=== PATIENT | male | born 1955 | race American Indian/Alaskan Native ===

== ENCOUNTER 2016-10-29 05:59 | Day surgery (SDC) | payer OTHER ==
[~2016-10-29 05:59] MED LIST: MARCAINE 0.25% INFILTRATI ONE; WATER FOR IRRIG STERILE IR ONE; XYLOCAINE 1%/ EPI 1:100,000 INFILTRATI ONE
[2016-10-29] MEDS ORDERED: PEPCID PO NR (06:00)
[2016-10-29] MEDS ORDERED: CLEOCIN 600 MG/50 mL 600 MG/50 ML BAG IV NR (06:00)
[2016-10-29] MEDS ORDERED: NACL 0.9% 1000 ML 1,000 ML IV SCH (06:00)
[2016-10-29] MEDS ORDERED: VERSED IV NR (06:00)
[2016-10-29] MEDS ORDERED: NACL BACTERIOSTATIC INFILTRATI ONE (06:41)
[2016-10-29] MEDS ORDERED: XYLOCAINE 1%/ EPI 1:100,000 INFILTRATI ONE ×3 (07:10→08:28)
[2016-10-29] MEDS ORDERED: XYLOCAINE MPF 2% ONE (07:11)
[2016-10-29] MEDS ORDERED: MARCAINE 0.25% INFILTRATI ONE ×3 (07:11→08:28)
[2016-10-29] MEDS ORDERED: ZOFRAN ONE (07:11)
[2016-10-29] MEDS ORDERED: DIPRIVAN 10 MG/ML IV ONE (07:12)
[2016-10-29] MEDS ORDERED: DILAUDID IV PRN (07:12)
[2016-10-29] MEDS ORDERED: SUBLIMAZE ONE (07:12)
--- NOTE | 2016-10-29 07:12 | Anesthesia Day of Surgery ---
Anesthesia Day of Surgery - Day of Surgery Patient Examined: Yes Patient H&P Reviewed: Yes Patient is NPO: Yes
--- NOTE | 2016-10-29 07:12 | Anesthesia Consultation ---
Anesthesia Consult and Med Hx Date of service: 10/29/16 - Airway Anesthetic Teeth Evaluation: Partials ROM Head & Neck: Adequate Mental/Hyoid Distance: Adequate Mallampati Class: Class II Intubation Access Assessment: Probably Good - Pulmonary Exam CTA: Yes - Cardiac Exam Cardiac Exam: RRR - Pre-Operative Health Status ASA Pre-Surgery Classification: ASA2 Proposed Anesthetic Plan: MAC - Pulmonary Hx Smoking: Yes (STOPPED X 4 YRS- 1/2 PACK PER WEEK) Hx Sleep Apnea: (MARY PRE SCREEN HIGH RISK.) - Cardiovascular System Hx Hypertension: No - Central Nervous System Hx Back Pain: Yes (WITH OCC NUMBNESS) - Endocrine Hx Non-Insulin Dependent Diabetes: Yes - Other Systems Hx Cancer: No
[2016-10-29] MEDS ORDERED: WATER FOR IRRIG STERILE IR ONE (08:39)
[2016-10-29] MEDS ORDERED: VERSED ONE (08:44)
[2016-10-29] MEDS ORDERED: ZOFRAN IV PRN (09:00)
--- NOTE | 2016-10-29 09:02 | Post Operative Note ---
Pre-op diagnosis: Sebaceous cyst right thigh Post-op diagnosis: same Findings: 3cmx 3 cm josé miguel cyst rt postr distal 3rd thigh Procedure: Excision sebaceous cyst rt thigh Anesthesia: MAC Surgeon: AWA MOFFETT Estimated blood loss: minimal Pathology: list (sebaceous cyst) Specimen disposition: to lab Condition: stable Disposition: PACU
--- NOTE | 2016-10-29 09:04 | Discharge Summary ---
Short Stay Discharge Plan Weight Bearing Status: Weight Bear as Tolerated Diet: regular Wound: change dressing (after 2 days - june shower daily, cover with band aids as needed) Follow up with: STEWART FLETCHER MD [Primary Care Provider] - 7 Days Prescriptions: HYDROcodone/APAP 5-325 [[place] 5-325 mg TAB] 1 each PO Q6HR PRN #20 tablet PRN Reason: Pain
[2016-10-29 09:18] VITALS: BP 127/86
--- NOTE | 2016-10-29 09:41 | Operative Report ---
PREOPERATIVE DIAGNOSIS: Sebaceous cyst, right posterior thigh, 3 cm x 3 cm. POSTOPERATIVE DIAGNOSIS: Sebaceous cyst, right posterior thigh, 3 cm x 3 cm. OPERATIVE PROCEDURE: Excision of sebaceous cyst, right posterior thigh. ANESTHESIA: IV sedation, local 1% Xylocaine with 0.25% Marcaine. SURGEON: Morales York M.D. SPECIMEN: Sebaceous cyst. INDICATIONS: A 60-year-old male patient presenting with a symptomatic visible and palpable lesion in the right posterior thigh that clinically appears to be sebaceous cyst. FINDINGS: A 3 cm x 3.5 cm sebaceous cyst with firmly adherent thin wall to the dermis containing whitish sebaceous material without any evidence of cellulitis or abscess. DESCRIPTION OF PROCEDURE: The patient was placed in a lateral position exposing the right posterior thigh in the operative area. Prepped and draped. Skin and subcutaneous tissue and deeper tissues were adequately infiltrated with the local anesthetic. A crease incision was made and using a sharp dissection the thin walled cyst was from the dermis. It was from the deeper structures. A small entry into the cyst wall was made with minimal extrusion of the sebaceous material. After removing the cyst, minimal bleeding was noted from the lower aspect of the operative field that was controlled by cautery. The wound was irrigated well with saline solution. Subdermal tissue approximated with 3-0 Vicryl and skin with multiple interrupted 4-0 Prolene sutures. There was minimal blood loss and he tolerated the procedure well. JOB# [id number] MNN/NTS
--- NOTE | 2016-10-29 15:26 | Post Anesthesia Evaluation ---
- Post Anesthesia Evaluation Patient Participated: Yes Airway Patent: Yes Stable Respiratory Function: Yes Nausea/Vomiting: No Temp > 96.8F: Yes Pain Manageable: Yes Adequeate Hydration: Yes Anesthesia Complications: No Block Receding Appropriately: Not Applicable Patient on Ventilator: No
== END 2016-10-29 09:45 | disposition home or self-care (01) ==
LOC: OR 05:59
PROVIDERS: ATTEND Surgery
DX: L72.3 Sebaceous cyst (principal); E11.9 Type 2 diabetes mellitus without complications; Z87.891 Personal history of nicotine dependence; Z88.0 Allergy status to penicillin; Z79.84 Long term (current) use of oral hypoglycemic drugs; Z72.89 Other problems related to lifestyle
CPT/HCPCS: 11403; 82962; 88304; J2250; J2405; J2704; J7030; 88307; J3010